=== PATIENT | male | born 1980 | race Caucasian/White ===

== ENCOUNTER 2024-05-18 10:20 | Emergency (ER) | payer OTHER ==
[2024-05-18 11:05] LABS: Absolute Basophils 0.1 K/uL (0-0.5); Absolute Eosinophils 0.1 K/uL (0-0.5); Absolute Lymphocytes (CBC) 1.5 K/uL (0.7-4.9); Absolute Monocytes 0.5 K/uL (0.1-1.3); Absolute Neutrophil 4.3 K/uL (1.8-8.0); Basophils % 0.9 % (0-1.3); Eosinophils % 2.2 % (0-4.4); Hematocrit 43.5 % (39.6-49.0); Hemoglobin 14.7 g/dL (13.6-17.9); Lymphocytes % 23.1 % (15.3-44.8); MCH 28.4 pg (27.0-35.0); MCHC 33.8 g/dL (32.0-36.0); MCV 83.8 fL (80-100); MPV 8.8 fL (7.6-11.3); Neutrophils % 65.8 % (41.7-73.7); Nucleated Red Blood Cells % 0.2 % (0-0); Platelets 168 thou/uL (152-406); RBC Red Blood Cell Count 5.19 M/uL (4.33-5.43); Red Cell Distribution Width 13.8 % (12.1-15.2)
[2024-05-18 11:25] LABS: Anion Gap 7.7 mEq/L (5.0-15.0); Potassium 3.7 mEq/L (3.5-5.1); Troponin High Sensitivity 3.3 pg/mL (<58.9)
--- NOTE | 2024-05-18 12:21 | RAD REPORT ---
EXAMINATION: ONE VIEW CHEST XR CLINICAL INDICATION: Male, 44 years old.,CHEST PAIN TECHNIQUE: Frontal chest projection is submitted. Examination is limited by patient positioning and t echnique. COMPARISON: No prior exam. FINDINGS: Perihilar streaky opacities. Suggestion of background central interstitial prominence as well. No foc al consolidation.. No pneumothorax or sizable effusion. The heart is normal in size. Mediastinal contours are unremarkable. IMPRESSION: Perihilar streaky opacities, may reflect reactive airway changes or viral infection. Suggestion of ce ntral interstitial prominence may reflect background central congestion as well.
--- NOTE | 2024-05-18 12:42 | EDPHYS ---
Physician Documentation [facility] Name: Noé Iniguez Age: 44 yrs Sex: Male : 1980 Arrival Date: 05/18/2024 Time: 10:20 Bed 17 Private MD: ED Physician Amber Thompson HPI: 05/18 10:28 This 44 yrs old Male presents to ER via EMS with complaints of chest pain x 3 dr5 days. 10:28 Patient is a 44-year-old male with no past medical history coming in with chest pain dr5 and shortness of breath has been going on for 3 days. Patient also reports rash to lower abdomen consistent with contact of otitis. Patient reports that the rash is itchy and uncomfortable. EMS gave 324 of aspirin as well as 0.4 mg of nitroglycerin that has alleviated his chest pain.. Historical: - Allergies: 10:43 No Known Allergies; hb - Immunization history:: Adult Immunizations unknown. - Infectious Disease History:: Denies. - Social history:: Smoking status: unknown. ROS: 10:28 Constitutional: as per hpi dr5 Exam: 10:28 Constitutional: This is a well developed, well nourished patient who is awake, alert, dr5 and in no acute distress. Head/Face: Normocephalic, atraumatic. Eyes: Pupils equal round and reactive to light, extra-ocular motions intact. Lids and lashes normal. Conjunctiva and sclera are non-icteric and not injected. Cornea within normal limits. Periorbital areas with no swelling, redness, or edema. Neck: Trachea midline, no thyromegaly or masses palpated, and no cervical lymphadenopathy. Supple, full range of motion without nuchal rigidity, or vertebral point tenderness. No Meningismus. Chest/axilla: Normal chest wall appearance and motion. Nontender with no deformity. No lesions are appreciated. Cardiovascular: Regular rate and rhythm with a normal S1 and S2. Normal PMI, no JVD. No pulse deficits. Respiratory: Lungs have equal breath sounds bilaterally, clear to auscultation. No rales, rhonchi or wheezes noted. No increased work of breathing, no retractions or nasal flaring. Back: No spinal tenderness. No costovertebral tenderness. Full range of motion. Neuro: Awake and alert, GCS 15, oriented to person, place, time, and situation. Cranial nerves II-XII grossly intact. Motor strength 5/5 in all extremities. Sensory grossly intact. Cerebellar exam normal. Normal gait. 10:28 Skin: rash a moderate rash is noted, rash can be described as raised, Vital Signs: 10:30 BP 115 / 85; Pulse 68; Resp 18; Temp 98; Pulse Ox 97% on R/A; hb 11:30 BP 119 / 71; Pulse 58; Resp 20; Pulse Ox 98% on R/A; hb 12:48 BP 126 / 76; Pulse 70; Resp 20; Temp 98.2; Pulse Ox 98% on R/A; hb MDM: 10:28 Medical Screening Exam initiated dr5 14:01 Differential Diagnosis altered mental status, PNA, Chest Pain, NSTEMI, STEMI, GERD. dr5 Data reviewed: vital signs, nurses notes. Consideration of Admission/Observation Escalation of care including admission/observation considered. Escalation considered if patient had abnormal troponin or BNP.. Historians other than the Patient: Spouse/Significant Other: . Care significantly affected by the following Social Determinants of Health: Poor access to healthcare and/or lack of insurance, Poor access to transportation, Problems related to employment. Counseling: I had a detailed discussion with the patient and/or guardian regarding the historical points, exam findings, and any diagnostic results supporting the discharge/admit diagnosis, the presence of at least one elevated blood pressure reading (>120/80) during this emergency department visit, lab results, radiology results, the need for outpatient follow up, for definitive care, a quick service technician, a family practitioner, to return to the emergency department if symptoms worsen or persist or if there are any questions or concerns that arise at home. ED course: Patient reports that his chest pain has resolved and has not had any pain while in the ER. Patient's lab work went over with patient. Concerns for possible developing pneumonia versus viral infection. Will give outpatient antibiotics to cover for pneumonia. Patient also given steroid pack and triamcinolone cream for chronic dermatitis noted to lower abdomen. All questions answered. Will have patient follow-up with primary care doctor this week and return to ER for worsening conditions.. 05/18 10:27 Order name: Basic Metabolic Panel; Complete Time: 11:39 dr5 05/18 10:27 Order name: CBC with Diff; Complete Time: 11:18 dr5 05/18 10:27 Order name: NT PRO-BNP; Complete Time: :05/18 10:27 Order name: Troponin HS; Complete Time: 05/18 10:27 Order name: XRAY Chest (1 view); Complete Time: 12: [facility] 05/18 10:27 Order name: Cardiac monitoring; Complete Time: 11:05/18 10:27 Order name: EKG - Nurse/Tech; Complete Time: :05/18 10:27 Order name: IV Saline Lock; Complete Time: 05/18 10:27 Order name: Labs collected and sent; Complete Time: :05/18 10:27 Order name: O2 Per Protocol; Complete Time: [facility] 05/18 10:27 Order name: O2 Sat Monitoring; Complete Time: : [facility] EC:53 Rate is 63 beats/min. Rhythm is regular. QRS [place] is Normal. [place] interval is normal at dr5 198 msec. QRS interval is normal at 102 msec. QT interval is normal at 406 msec. Administered Medications: No medications were administered Disposition Summary: 05/18/24 12:42 Discharge Ordered Notes: Location: Home dr5 Condition: Stable dr5 Diagnosis - Unspecified bacterial pneumonia dr5 Followup: dr5 - With: Emergency Department - When: As needed - Reason: Worsening of condition Followup: dr5 - With: Private Physician - When: 1 - 2 days - Reason: Recheck today's complaints, Continuance of care, Re-evaluation by your physician Discharge Instructions: - Discharge Summary Sheet dr5 - Community-Acquired Pneumonia, Adult dr5 Forms: - Work release form dr5 - Medication Reconciliation Form dr5 - Antibiotic Education dr5 - Patient Portal Instructions dr5 - Leadership Thank You Letter dr5 Prescriptions: - Augmentin 875-125 mg Oral Tablet - take 1 tablet ORAL route every 12 hours for 10 days; 20 tablet; Refills: 0, dr5 Product Selection Permitted - Zithromax Z-Nikolas 250 mg Oral Tablet - take 1 tablet ORAL route as directed for 5 days Day 1 - take two (2) tablets dr5 one time. Day 2, 3, 4 , 5 take one (1) tablet once daily.; 6 tablet; Refills: 0, Product Selection Permitted - Medrol (Nikolas) 4 mg Oral Tablets, Dose Pack - take 1 tablet ORAL route as directed - follow package instructions; 1 packet; dr5 Refills: 0, Product Selection Permitted - Triamcinolone Acetonide 0.1 % Topical ointment - apply 1 application TOPICAL route every 12 hours As needed; 1 application; dr5 Refills: 0, Product Selection Permitted Signatures: Dispatcher [employer] EDMS Jacqueline Cruz, RN RN Chele Alcala, KILN HEAD HOUSE OPERATOR-C KILN HEAD HOUSE OPERATOR-Cdr5 Corrections: (The following items were deleted from the chart) 10:27 10:27 BASIC METABOLIC PANEL+C.LAB.BRZ ordered. EDMS EDMS 10:27 10:27 CBC+H.LAB.BRZ ordered. EDMS EDMS 10:27 10:27 PROBNP+C.LAB.BRZ ordered. EDMS EDMS 10:27 10:27 Troponin High Sensitivity+C.LAB.BRZ ordered. EDMS EDMS 10:28 10:27 Chest Single View+RAD.RAD.BRZ ordered. EDMS EDMS
--- NOTE | 2024-05-18 12:42 | ER ---
Nurse's Notes [facility] Name: Noé Iniguez Age: 44 yrs Sex: Male : 1980 Arrival Date: 05/18/2024 Time: 10:20 Bed 17 Private MD: Diagnosis: Unspecified bacterial pneumonia Presentation: 05/18 10:30 Chief complaint: EMS states: chest pain. Coronavirus screen: Client denies travel out of the [place] in the last 14 days. Ebola Screen: No symptoms or risks identified at this time. Initial Sepsis Screen: Does the patient meet any 2 criteria? No. Patient's initial sepsis screen is negative. Does the patient have a suspected source of infection? No. Patient's initial sepsis screen is negative. Risk Assessment: Do you want to hurt yourself or someone else? Patient reports no desire to harm self or others. Onset of symptoms was May 18, 2024. 10:30 Method Of Arrival: EMS: [facility] 10:30 Acuity: NOEMÍ 3 hb Triage Assessment: 10:44 General: Appears in no apparent distress. Behavior is calm, cooperative. Pain: hb Complains of pain in chest Pain does not radiate. Pain currently is 0 out of 10 on a pain scale. Neuro: Level of Consciousness is awake, alert, obeys commands, Oriented to person, place, time, situation. Cardiovascular: Patient's skin is warm and dry. Respiratory: Airway is patent Respiratory effort is even, unlabored. GI: No signs and/or symptoms were reported involving the gastrointestinal system. : No signs and/or symptoms were reported regarding the genitourinary system. Historical: - Allergies: 10:43 No Known Allergies; hb - Immunization history:: Adult Immunizations unknown. - Infectious Disease History:: Denies. - Social history:: Smoking status: unknown. Screenin:30 [facility] ED Fall Risk Assessment (Adult) History of falling in the last 3 months, including since admission No falls in past 3 months (0 pts) Confusion or Disorientation No (0 pts) Intoxicated or Sedated No (0 pts) Impaired Gait No (0 pts) Mobility Assist Device Used No (0 pt) Altered Elimination No (0 pt) Score/Fall Risk Level 0 - 2 = Low Risk Maintained a safe environment, Hourly rounding (assess needs \T\ fall precautionary measures) done. Abuse screen: Denies threats or abuse. Denies injuries from another. Nutritional screening: No deficits noted. Tuberculosis screening: No symptoms or risk factors identified. Assessment: 10:30 General: see triage assessment. hb 10:45 Pain: Pain began suddenly. hb 11:30 Reassessment: Patient appears in no apparent distress at this time. Patient and/or hb family updated on plan of care and expected duration. Pain level reassessed. Patient is alert, oriented x 3, equal unlabored respirations, skin warm/dry/pink. 12:35 Reassessment: Patient appears in no apparent distress at this time. Patient and/or hb family updated on plan of care and expected duration. Pain level reassessed. Patient is alert, oriented x 3, equal unlabored respirations, skin warm/dry/pink. Vital Signs: 10:30 BP 115 / 85; Pulse 68; Resp 18; Temp 98; Pulse Ox 97% on R/A; hb 11:30 BP 119 / 71; Pulse 58; Resp 20; Pulse Ox 98% on R/A; hb 12:48 BP 126 / 76; Pulse 70; Resp 20; Temp 98.2; Pulse Ox 98% on R/A; hb ED Course: 10:26 Patient arrived in ED. sp 10:27 [facility] Whitney [facility]C [facility] 10:27 Amber Thompson MD is Attending Physician. dr5 10:30 Maintain EMS IV. Dressing intact. Good blood return noted. Site clean \T\ dry. Gauge \T\ hb site: 20g right AC. Flushed with 10 mL NS. 10:41 Jacqueline Cruz, RN is Primary Nurse. hb 10:43 Triage completed. hb 10:45 Patient has correct armband on for positive identification. Bed in low position. Call hb light in reach. Provided Education on: call light. Client placed on continuous cardiac and pulse oximetry monitoring. NIBP monitoring applied. special education resource teacher on. 10:45 No provider procedures requiring assistance completed. Patient maintains SpO2 hb saturation greater than 95% on room air. 10:47 Arm band placed on Patient placed in an exam room, on a stretcher. hb 11:06 Basic Metabolic Panel Sent. em1 11:06 CBC with Diff Sent. em1 11:06 NT PRO-BNP Sent. em1 11:06 Troponin HS Sent. em1 11:06 Initial lab(s) drawn, by me, sent to lab. EKG done, by ED staff, reviewed by Chele NOBLES. 11:34 XRAY Chest (1 view) In Process Unspecified. EDMS 12:51 IV discontinued, intact, bleeding controlled, No redness/swelling at site. Pressure hb dressing applied. Administered Medications: No medications were administered Medication: 12:50 VIS not applicable for this client. hb Outcome: 12:42 Discharge ordered by MD. dr5 12:50 Discharged to home ambulatory, with family, hb 12:50 Condition: stable 12:50 Discharge instructions given to patient, Instructed on discharge instructions, follow up and referral plans. Demonstrated understanding of instructions, follow-up care, 12:56 Patient left the ED. hb Signatures: Dispatcher [employer] EDMS Mar Briceno Eric em1 Jacqueline Cruz, RN RN Chele Alcala, GIULIANO HOLISTIC PULSER-Cdr5
[2024-05-18 13:01] VITALS: O2SAT 98
[2024-05-18 13:02] VITALS: BP 126/76; TEMP 98.2
--- NOTE | 2024-05-19 12:02 | EKG ---
Test Date: 2024-05-18 Test Time: 10:53:55 [employer] Rock Installation Helper: JOIE MEASUREMENT RESULTS: Intervals: Rate: 63 KS: 198 QRSD: 102 QT: 406 QTc: 415 [place]: P: 34 KS: 198 QRS: 11 T: 24 INTERPRETIVE STATEMENTS: Normal sinus rhythm Normal ECG No previous ECG available for comparison Electronically Signed On 05-19-24 11:59:43 CDT by Will Delacruz
== END 2024-05-18 12:56 | disposition home or self-care (01) ==
LOC: ER 10:20
DX: J15.9 Unspecified bacterial pneumonia (principal)
CPT/HCPCS: 36415; 71045; 80048; 83880; 84484; 85025; 93005; 99284